=== PATIENT | female | born 1955 | race Two or more races ===

== ENCOUNTER 2019-11-23 13:58 | Emergency (ER) | payer OTHER ==
[~2019-11-23] VITALS: Ht 160 cm; Wt 63.5 kg
[~2019-11-23 13:58] MED LIST: BACTRIM DS TAB1 EACH PO; CLONAZEPAM0.125 MG; EVISTA60 MG; PROVIGIL100 MG; RESTORIL30 MG; RISPERDAL; SYNTHROID50 MCG; ZOLOFT100 MG
== END 2019-11-23 20:13 | disposition home or self-care (01) ==
LOC: ER 13:58
DX: H61.23 Impacted cerumen, bilateral (principal)

== ENCOUNTER 2025-02-22 13:56 | Emergency (ER) | payer OTHER ==
[~2025-02-22] VITALS: Ht 160 cm; Wt 61.2 kg
[2025-02-22] MEDS ORDERED: METHYLPREDNISOLONE SOD SUCC 125 MG VIAL IV ONE (15:15)
[2025-02-22] MEDS ORDERED: IPRATROPIUM/ALBUTEROL SULFATE 3 ML AMPUL.NEB IH SCH (15:15)
[2025-02-22] MEDS ORDERED: GUAIFENESIN/DEXTROMETHORPHAN 100MG/10ML BLIST.PACK PO ONE (15:15)
[2025-02-22] MEDS ORDERED: GUAIFENESIN 200 MG/10 ML BLIST.PACK PO ONE (15:52)
[2025-02-22] MEDS ORDERED: METHYLPREDNISOLONE SOD SUCC 125 MG VIAL ONE (15:52)
[2025-02-22] MEDS ORDERED: IPRATROPIUM/ALBUTEROL SULFATE 3 ML AMPUL.NEB IH ONE (16:04)
[2025-02-22 16:31] LABS: BASO % 0.9 % (0.1-1.2); EOS % 3.1 % (0.7-7.0); HEMATOCRIT 37.1 % (34.1-44.9); LYMPH % 31.4 % (19.3-53.1); MEAN CORPUSCULAR HEMOGLOBIN 27.2 pg (25.6-32.2); MONO # 0.46 (0.24-0.82); NEUT # 1.59 (1.56-6.13); NEUT % 50.1 % (34.0-71.1); PLATELET COUNT 170 K/uL (163-369); RED BLOOD COUNT 4.41 M/uL (3.93-5.22)
[2025-02-22 16:46] LABS: MONO % 14.5 % (4.7-12.5)
[2025-02-22 17:17] LABS: COVID-19 AG NEGATIVE (NEGATIVE); INFLUENZA A AG NEGATIVE (NEGATIVE)
[2025-02-22] MEDS ORDERED: ALBUTEROL1.25 MG/3 IH (17:54)
[2025-02-22] MEDS ORDERED: IPRATROPIU0.2 MG/1 M IH (17:54)
[2025-02-22] MEDS ORDERED: ZITHROMAX500 MG PO (17:54)
[2025-02-22] MEDS ORDERED: MEDROLPACK PO (17:54)
[2025-02-22] MEDS ORDERED: TUSSIN DM LIQU118 ML PO (17:54)
== END 2025-02-22 18:16 | disposition home or self-care (01) ==
LOC: ER 16:26
PROVIDERS: General Practice
DX: B34.9 Viral infection, unspecified (principal); J00 Acute nasopharyngitis [common cold]; R05.9 Cough, unspecified; Z20.822 Contact with and (suspected) exposure to COVID-19; Z88.5 Allergy status to narcotic agent; Z91.041 Radiographic dye allergy status